=== PATIENT | female | born 1995 | race Hispanic/Latino ===

== ENCOUNTER 2025-04-10 19:00 | Inpatient (IN) | payer OTHER, SELFPAY ==
[2025-04-10 20:25] VITALS: BMI 34.9
[2025-04-10] MEDS ORDERED: Ondansetron PF 4 MG/2 ML Vial IVP PRN (21:17)
[2025-04-10] MEDS ORDERED: Tranexamic Acid 1,000 MG/10 ML VIAL IVP PRN (21:17)
[2025-04-10] MEDS ORDERED: Methylergonovine 0.2 MG/ML VIAL IM PRN (21:17)
[2025-04-10] MEDS ORDERED: hydrALAZINE 20 MG/ML VIAL SLOW IVP PRN (21:17)
[2025-04-10] MEDS ORDERED: Acetaminophen 500 MG TAB PO PRN (21:17)
[2025-04-10] MEDS ORDERED: Diphenoxylate HCl/Atropine Tablet PO PRN ×2 (21:17)
[2025-04-10] MEDS ORDERED: Lidocaine 1% (PF) 30 ML VIAL SC PRN (21:17)
[2025-04-10] MEDS ORDERED: Carboprost 250 MCG/ML AMP IM PRN (21:17)
[2025-04-10] MEDS ORDERED: Oxytocin 30 units/NS 500 ML 500 ML IV SCH ×2 (21:30)
[2025-04-10 21:45] LABS: Hematocrit 35.9 % (34.9-44.5); Hemoglobin 12.2 g/dL (12.0-15.5); Mean Corpuscular Hemoglobin 28.0 pg (27.0-33.0); Mean Corpuscular Volume 82.5 fL (81.6-98.3); Platelet Count 181 10x3/uL (150-450); Red Blood Cell (RBC) Count 4.35 10x6/uL (3.90-5.03); White Blood Cell (WBC) Count 6.09 10x3/uL (3.5-10.5)
[2025-04-10 22:05] LABS: Hep B Surf Ag - L&D Non-Reactive S/CO (NonReactive)
[2025-04-10 22:06] LABS: Syphilis Antibody Index 0.06 S/CO (<1.00 Non-Reactive)
[2025-04-11] MEDS ORDERED: diphenhydrAMINE 50 MG/ML VIAL IVP PRN (04:37)
[2025-04-11] MEDS ORDERED: Ondansetron PF 4 MG/2 ML Vial IVP PRN ×2 (04:37→15:44)
[2025-04-11] MEDS ORDERED: fentaNYL 2 mcg/Ropivacaine 0.2% Epidural 100 ML CADD EPIDURAL SCH (04:45)
[2025-04-11] MEDS ORDERED: Communication Order-Pharmacy FS SCH (04:45)
[2025-04-11] MEDS: fentaNYL/Ropivacaine Epidural 100 ML ONE (04:57)
[2025-04-11] MEDS: Oxytocin 30 units/NS 500 ML 500 ML IV SCH (05:16)
[2025-04-11] MEDS ORDERED: Bupivacaine 0.25% HCL 30 ML VIAL ONE (12:00)
[2025-04-11] MEDS ORDERED: Bupivacaine HCl 0.5%/Epinephrine 1:200,000/PF 30 ml Vial ONE (12:00)
[2025-04-11] MEDS: Ibuprofen 800 MG TAB PO PRN (15:03)
[2025-04-11] MEDS ORDERED: Oxytocin 30 units/NS 500 ML 500 ML IV SCH (15:44)
[2025-04-11] MEDS ORDERED: Preparation H Ointment 28 GM TUBE PR PRN (15:44)
[2025-04-11] MEDS ORDERED: Methylergonovine 0.2 MG/ML VIAL IM PRN (15:44)
[2025-04-11] MEDS ORDERED: Lanolin Ointment 7 GM TUBE TOP PRN (15:44)
[2025-04-11] MEDS ORDERED: hydrALAZINE 20 MG/ML VIAL SLOW IVP PRN (15:44)
[2025-04-11] MEDS ORDERED: Bisacodyl 10 MG SUPP PR PRN (15:44)
[2025-04-11] MEDS ORDERED: Milk Of Magnesia 30 ML UDCUP PO PRN (15:44)
[2025-04-11] MEDS ORDERED: diphenhydrAMINE 25 MG CAP PO PRN (15:44)
[2025-04-11] MEDS: Benzocaine-Menthol 82.5 ML CAN TOP PRN (15:56)
[2025-04-11] MEDS: Acetaminophen 325 MG TAB PO PRN (18:35)
[2025-04-11] MEDS: Ibuprofen 800 MG TAB PO SCH (21:34)
[2025-04-12] MEDS: Ferrous Sulfate 325 MG TAB PO SCH (02:25)
[2025-04-12 11:53] VITALS: BP 123/80; TEMP 98.3
== END 2025-04-12 14:25 | disposition home or self-care (01) | DRG 807 ==
LOC: CSHLD 19:30 → CSHPP 04-11 15:35
PROVIDERS: ADMIT Obstetrics & Gynecology; ATTEND Obstetrics & Gynecology
PROC: 10907ZC Drainage of Amniotic Fluid, Therapeutic from Products of Conception, Via Natural or Artificial Opening (ICD-10-PCS; principal; 2025-04-10)
PROC: 10E0XZZ Delivery of Products of Conception, External Approach (ICD-10-PCS; 2025-04-10)
PROC: 0KQM0ZZ Repair Perineum Muscle, Open Approach (ICD-10-PCS; 2025-04-10)
PROC: 3E033VJ Introduction of Other Hormone into Peripheral Vein, Percutaneous Approach (ICD-10-PCS; 2025-04-10)
DX: O24.429 Gestational diabetes mellitus in childbirth, unspecified control (principal); Z37.0 Single live birth; Z3A.39 39 weeks gestation of pregnancy; O70.1 Second degree perineal laceration during delivery
CPT/HCPCS: 36416; 85027; 86780; 86850; 86900; 86901; 87340; J0665; J2590; J7120